=== PATIENT | female | born 1960 | race American Indian/Alaskan Native ===

== ENCOUNTER 2017-04-27 08:50 | Emergency (ER) | payer OTHER ==
[2017-04-27 10:32] LABS: Creatine Kinase MB 4.2 ng/mL (0.0-4.0)
[2017-04-27 10:33] LABS: Anion Gap 23 mmol/L; BUN/Creatinine Ratio 23; Blood Urea Nitrogen 14 mg/dL (7-17); Calcium 10.2 mg/dL (8.4-10.2); Carbon Dioxide 21 mmol/L (22-30); Chloride 99.5 mmol/L (98-107); Creatine Kinase 201 units/L (30-135); Glucose 305 mg/dL (65-100); Potassium 4.4 mmol/L (3.6-5.0); Sodium 139 mmol/L (137-145)
[2017-04-27 10:38] LABS: Eosinophils % (Auto) 0.9 % (0.0-4.3); Hematocrit 41.7 % (30.3-42.9); Hemoglobin 13.5 gm/dl (10.1-14.3); Mean Corpuscular HGB Conc 32 % (30-34); Mean Corpuscular Volume 76 fl (79-97); Platelet Count 172 K/mm3 (140-440); Red Blood Count 5.47 M/mm3 (3.65-5.03); Red Cell Distribution Width 14.4 % (13.2-15.2); White Blood Count 7.2 K/mm3 (4.5-11.0)
[2017-04-27 10:39] LABS: Mean Corpuscular Hemoglobin 25 pg (28-32)
[2017-04-27 10:40] LABS: Mucus,Urine FEW /HPF; RBC,Urine < 1.0 /HPF (0.0-6.0); WBC,Urine < 1.0 /HPF (0.0-6.0)
[2017-04-27 10:54] VITALS: BP 163/89
[2017-04-27 11:06] LABS: Bilirubin,Urine Negative (Negative); Blood,Urine Small (Negative); Ketones,Urine Trace mg/dL (Negative)
[2017-04-27 11:07] LABS: Leukocyte Esterase,Urine Negative (Negative); Nitrite,Urine Negative (Negative); Urobilinogen,Urine < 2.0 mg/dL (<2.0)
[2017-04-27] MEDS ORDERED: DILAUDID IV ONE (11:41)
[2017-04-27] MEDS ORDERED: ZOFRAN IV ONE (11:41)
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
== END 2017-04-27 14:39 | disposition home or self-care (01) ==
LOC: ED 08:50
DX: S13.4XXA Sprain of ligaments of cervical spine, initial encounter (principal); I10 Essential (primary) hypertension; E11.9 Type 2 diabetes mellitus without complications; K21.9 Gastro-esophageal reflux disease without esophagitis; F17.200 Nicotine dependence, unspecified, uncomplicated; F10.10 Alcohol abuse, uncomplicated; V89.2XXA Person injured in unspecified motor-vehicle accident, traffic, initial encounter; Y93.89 Activity, other specified; Y92.89 Other specified places as the place of occurrence of the external cause; Y99.8 Other external cause status
CPT/HCPCS: 36415; 70498; 72125; 80048; 81001; 82550; 82553; 82962; 84484; 85025; 93005; 93010; 96374; 96375; 99284; J1170; J2405; Q9967; J1815

== ENCOUNTER 2017-07-17 10:33 | Emergency (ER) | payer OTHER ==
[2017-07-17 11:29] VITALS: BP 170/87
--- NOTE | 2017-07-17 13:17 | Emergency Department Report ---
Blank Doc - Documentation Documentation: Patient is a 57-year-old Spanish female who presented with cough cold congestion for 5 days. Patient is a heavy smoker and is worried about pneumonia. Patient states she is just continuously coughing denies any fever nausea vomiting at this time Chest x-ray has been ordered patient had a mild bronchitic cough with mild wheeze and a DuoNeb been ordered as well.
[2017-07-17] MEDS ORDERED: TESSALON PERLES PO ONE (13:18)
[2017-07-17] MEDS ORDERED: DUONEB *Not for PRN Use IH ONE (13:18)
--- NOTE | 2017-07-17 14:20 | XRay Report ---
ROUTINE CHEST, TWO VIEWS: HISTORY: cough. The trachea, heart, mediastinal contour, lung mcrae and bony thorax are unremarkable. IMPRESSION: Unremarkable chest x-ray.
--- NOTE | 2017-07-17 15:16 | Emergency Department Report ---
- General Chief Complaint: Upper Respiratory Infection Stated Complaint: FLU LIKE SYMPTOMS Time Seen by Provider: 07/17/17 12:46 Source: patient Mode of arrival: Ambulatory Limitations: No Limitations - History of Present Illness Initial Comments: 57-year-old female comes over complaining of cough since this persistent she sore around her rib cage has nasal congestion and loss of voice. Patient reports that she had nausea and vomiting times one on of last week. And [place] plus and [place] cold and cough without much relief. Patient does not have a primary care. She denies any fever or chills. Review of patient's chart noted the patient was placed on metformin for blood sugar that she was last seen at 305 back in 04/27/2017. She was also placed on hypertensive medications that she reports she does not take any medications at this time. MD Complaint: cough, rhinorrhea, nasal congestion - Related Data Home Medications Medication Instructions Recorded Confirmed Last Taken Amoxicillin/Potassium Clav 1 each PO BID 04/27/17 04/27/17 04/26/17 [Augmentin 875-125 Tablet] Previous Rx's Medication Instructions Recorded Last Taken Type Cyclobenzaprine HCl [Flexeril 5 MG 5 mg PO TID #14 tab 04/27/17 Unknown Rx TAB] HYDROcodone/ACETAMINOPHEN [[place] 1 each PO Q6H PRN #14 tablet 04/27/17 Unknown Rx 5-325 Tablet] Lisinopril/Hydrochlorothiazide 1 tab PO QDAY #30 tablet 04/27/17 Unknown Rx [Zestoretic 10-12.5 mg] metFORMIN [Glucophage] 500 mg PO BID #60 tablet 04/27/17 Unknown Rx Promethazine /Codeine 5 ml PO Q6H PRN #100 ml 07/17/17 Unknown Rx [Phenergan/Codeine 6.25-10 mg/5 ml] Allergies Allergy/AdvReac Type Severity Reaction Status Date / Time No Known Allergies Allergy Unverified 08/16/13 09:22 ED Review of Systems ROS: Stated complaint: FLU LIKE SYMPTOMS Other details as noted in HPI Constitutional: denies: chills, fever Eyes: denies: eye pain, eye discharge, vision change ENT: denies: ear pain, throat pain Respiratory: cough Cardiovascular: denies: chest pain, palpitations Endocrine: no symptoms reported Gastrointestinal: denies: abdominal pain, nausea, diarrhea Genitourinary: denies: urgency, dysuria, discharge Musculoskeletal: denies: back pain, joint swelling, arthralgia Skin: denies: rash, lesions Neurological: denies: headache, weakness, paresthesias Psychiatric: denies: anxiety, depression Hematological/Lymphatic: denies: easy bleeding, easy bruising ED Past Medical Hx - Past Medical History Hx GERD: Yes Additional medical history: Denies history of diabetes or hypertension. Patient is a very poor utilizer of healthcare services. - Surgical History Additional Surgical History: Hernia removed - Social History Smoking Status: Former Smoker Substance Use Type: None - Medications Home Medications: Home Medications Medication Instructions Recorded Confirmed Last Taken Type Amoxicillin/Potassium Clav 1 each PO BID 04/27/17 04/27/17 04/26/17 History [Augmentin 875-125 Tablet] Cyclobenzaprine HCl [Flexeril 5 MG 5 mg PO TID #14 tab 04/27/17 Unknown Rx TAB] HYDROcodone/ACETAMINOPHEN [[place] 1 each PO Q6H PRN #14 tablet 04/27/17 Unknown Rx 5-325 Tablet] Lisinopril/Hydrochlorothiazide 1 tab PO QDAY #30 tablet 04/27/17 Unknown Rx [Zestoretic 10-12.5 mg] metFORMIN [Glucophage] 500 mg PO BID #60 tablet 04/27/17 Unknown Rx Promethazine /Codeine 5 ml PO Q6H PRN #100 ml 07/17/17 Unknown Rx [Phenergan/Codeine 6.25-10 mg/5 ml] ED Physical Exam - General Limitations: No Limitations General appearance: alert, in no apparent distress, other (nontoxic) - Head Head exam: Present: atraumatic, normocephalic - Eye Eye exam: Present: normal appearance - ENT ENT exam: Present: mucous membranes moist, TM's normal bilaterally - Neck Neck exam: Present: normal inspection - Respiratory Respiratory exam: Present: normal lung sounds bilaterally, other (actively coughing during exam) - Cardiovascular Cardiovascular Exam: Present: regular rate, normal rhythm. Absent: systolic murmur, diastolic murmur, rubs, gallop - GI/Abdominal GI/Abdominal exam: Present: soft, normal bowel sounds - Extremities Exam Extremities exam: Present: normal inspection, full ROM - Neurological Exam Neurological exam: Present: alert, oriented X3 - Psychiatric Psychiatric exam: Present: normal affect, normal mood ED Course Vital Signs 07/17/17 07/17/17 07/17/17 11:25 13:27 13:46 Temperature 97.8 F Pulse Rate 99 H Pulse Rate [ 90 88 Bilateral] Respiratory 18 Rate Respiratory 16 16 Rate [Bilateral ] Blood Pressure 170/87 O2 Sat by Pulse 97 Oximetry ED Medical Decision Making - Radiology Data Radiology results: report reviewed, image reviewed Unremarkable chest x-ray - Medical Decision Making Is evaluated by this provider as well as Dr. Sharma chest x-ray was ordered patient chest x-ray was unremarkable. Discussed the patient I'll give her cough medication for suppressant and something for her nasal congestion. Discussed the patient that it is imperative for her to follow up with her primary care provider since she is not taking any of her medications which when she was last here a 04/27/2017 she was prescribed lisinopril/ hydrochlorothiazide 03/22 0.5 as well as metformin 500 mg twice a day. Patient is not taking any of those medications. Patient verbalized understanding. Critical care attestation.: If time is entered above; I have spent that time in minutes in the direct care of this critically ill patient, excluding procedure time. ED Disposition Clinical Impression: Cold Disposition: DC-01 TO HOME OR SELFCARE Is pt being admited?: No Does the pt Need Aspirin: No Condition: Stable Instructions: Analgesic/Antihistamine/Decongestant (By mouth) Additional Instructions: Please do not operate heavy machinery car or take alcohol while taking this cough medication. Please follow-up with the doctor regards to your diabetes, hypertension, and preventative care. Prescriptions: Promethazine /Codeine [Phenergan/Codeine 6.25-10 mg/5 ml] 5 ml PO Q6H PRN #100 ml PRN Reason: cough Referrals: PRIMARY CARE, [Primary Care Provider] - 3-5 Days Forms: Work/School Release Form(ED)
== END 2017-07-17 15:40 | disposition home or self-care (01) ==
LOC: ED 10:33
DX: J00 Acute nasopharyngitis [common cold] (principal); K21.9 Gastro-esophageal reflux disease without esophagitis; Z87.891 Personal history of nicotine dependence
CPT/HCPCS: 71046; 94640

== ENCOUNTER 2019-07-28 16:14 | Emergency (ER) | payer OTHER ==
--- NOTE | 2019-07-28 16:47 | Event Note ---
ED Screening Note ED Screening Note: 59 yo female with hx of alcohol abuse and DM presents wtih ankkle, knee pain, chest pain, headache. extremely tearful and upset, drinks 6 beers daily This initial assessment/diagnostic orders/clinical plan/treatment(s) is/are subject to change based on patients health status, clinical progression and re-assessment by fellow clinical providers in the ED. Further treatment and workup at subsequent clinical providers discretion. Patient/guardian urged not to elope from the ED as their condition may be serious if not clinically assessed and managed. Initial orders include: labs ekg cxr
[2019-07-28 17:48] LABS: Hyaline Casts,Urine 1 /LPF; Mucus,Urine FEW /HPF
[2019-07-28 18:17] LABS: Bilirubin,Urine Negative (Negative); Color,Urine Straw (Yellow)
[2019-07-28 18:18] LABS: Blood,Urine Negative (Negative); Urobilinogen,Urine < 2.0 mg/dL (<2.0)
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
[2019-07-28 19:46] LABS: Basophils # (Auto) 0.1 K/mm3 (0.0-0.1); Basophils % (Auto) 1.8 % (0.0-1.8); Eosinophils % (Auto) 0.6 % (0.0-4.3); Hematocrit 33.4 % (30.3-42.9); Hemoglobin 10.8 gm/dl (10.1-14.3); Lymphocytes % (Auto) 25.7 % (13.4-35.0); Mean Corpuscular HGB Conc 32 % (30-34); Mean Corpuscular Volume 83 fl (79-97); Monocytes # (Auto) 0.5 K/mm3 (0.0-0.8); Monocytes % (Auto) 12.2 % (0.0-7.3); Platelet Count 145 K/mm3 (140-440); Red Blood Count 4.03 M/mm3 (3.65-5.03); Red Cell Distribution Width 17.3 % (13.2-15.2)
[2019-07-28 20:01] LABS: BUN/Creatinine Ratio 18; Blood Urea Nitrogen 9 mg/dL (7-17); Calcium 9.9 mg/dL (8.4-10.2); Hemolysis Index 1
[2019-07-28 20:03] LABS: Alanine Aminotransferase 45 units/L (7-56); Albumin 4.2 g/dL (3.9-5)
[2019-07-28 20:06] LABS: Bilirubin,Direct < 0.2 mg/dL (0-0.2)
[2019-07-29 00:50] VITALS: BP 208/110
--- NOTE | 2019-07-29 01:04 | Emergency Department Report ---
ED General Adult HPI - General Chief complaint: Weakness Stated complaint: RT SIDE SWELLING/FEET/HEADACHE Time Seen by Provider: 07/29/19 00:22 Source: patient Mode of arrival: Ambulatory Limitations: No Limitations - History of Present Illness Initial comments: 59-year-old -[place] female with past medical history of acid reflux disease and alcohol dependence presents emergency department complaining of lower extremity swelling bilaterally of unknown etiology which is been present off and on for the for the past few days. She reports having untreated hypertension and denies any chest pain, fever, chills, sweats, headaches, blurred vision nausea or vomiting, suicidal, homicidal ideation. States that she consumes about a pint of liquor daily in the form of tequila 1800. She wants to quit drinking also states that she knows she needs to do this for health and to stay around for her family but at this point is worried about the lower extremity swelling. -: Gradual Location: lower extremity Radiation: non-radiation Severity scale (0 -10): 8 Consistency: constant Improves with: none Worsens with: none Associated Symptoms: denies: chest pain, cough, diaphoresis, headaches, loss of appetite, malaise, rash, shortness of breath, syncope Treatments Prior to Arrival: none - Related Data Home Medications Medication Instructions Recorded Confirmed Last Taken Amoxicillin/Potassium Clav 1 each PO BID 04/27/17 04/27/17 04/26/17 [Augmentin 875-125 Tablet] Previous Rx's Medication Instructions Recorded Last Taken Type Cyclobenzaprine HCl [Flexeril 5 MG 5 mg PO TID #14 tab 04/27/17 Unknown Rx TAB] HYDROcodone/ACETAMINOPHEN [[place] 1 each PO Q6H PRN #14 tablet 04/27/17 Unknown Rx 5-325 Tablet] Lisinopril/Hydrochlorothiazide 1 tab PO QDAY #30 tablet 04/27/17 Unknown Rx [Zestoretic 10-12.5 mg] metFORMIN [Glucophage] 500 mg PO BID #60 tablet 04/27/17 Unknown Rx Promethazine /Codeine 5 ml PO Q6H PRN #100 ml 07/17/17 Unknown Rx [Phenergan/Codeine 6.25-10 mg/5 ml] Furosemide [Lasix] 20 mg PO QDAY #7 tablet 07/29/19 Unknown Rx Potassium Chloride 10 meq PO DAILY #7 tablet.er 07/29/19 Unknown Rx Allergies Allergy/AdvReac Type Severity Reaction Status Date / Time No Known Allergies Allergy Unverified 08/16/13 09:22 ED Review of Systems ROS: Stated complaint: RT SIDE SWELLING/FEET/HEADACHE Other details as noted in HPI Comment: All other systems reviewed and negative ED Past Medical Hx - Past Medical History Previous Medical History?: Yes Hx GERD: Yes Additional medical history: Denies history of diabetes or hypertension. Patient is a very poor utilizer of healthcare services. - Surgical History Past Surgical History?: Yes Additional Surgical History: Hernia removed - Social History Smoking Status: Unknown if ever smoked Substance Use Type: Alcohol - Medications Home Medications: Home Medications Medication Instructions Recorded Confirmed Last Taken Type Amoxicillin/Potassium Clav 1 each PO BID 04/27/17 04/27/17 04/26/17 History [Augmentin 875-125 Tablet] Cyclobenzaprine HCl [Flexeril 5 MG 5 mg PO TID #14 tab 04/27/17 Unknown Rx TAB] HYDROcodone/ACETAMINOPHEN [[place] 1 each PO Q6H PRN #14 tablet 04/27/17 Unknown Rx 5-325 Tablet] Lisinopril/Hydrochlorothiazide 1 tab PO QDAY #30 tablet 04/27/17 Unknown Rx [Zestoretic 10-12.5 mg] metFORMIN [Glucophage] 500 mg PO BID #60 tablet 04/27/17 Unknown Rx Promethazine /Codeine 5 ml PO Q6H PRN #100 ml 07/17/17 Unknown Rx [Phenergan/Codeine 6.25-10 mg/5 ml] Furosemide [Lasix] 20 mg PO QDAY #7 tablet 07/29/19 Unknown Rx Potassium Chloride 10 meq PO DAILY #7 tablet.er 07/29/19 Unknown Rx ED Physical Exam - General Limitations: No Limitations General appearance: alert, in no apparent distress - Head Head exam: Present: atraumatic, normocephalic - Eye Eye exam: Present: normal appearance, PERRL, EOMI Pupils: Present: normal accommodation - ENT ENT exam: Present: normal exam, normal orophraynx, mucous membranes moist, TM's normal bilaterally - Neck Neck exam: Present: normal inspection, full ROM - Respiratory Respiratory exam: Present: normal lung sounds bilaterally. Absent: respiratory distress, wheezes, rales, rhonchi, chest wall tenderness, accessory muscle use, decreased breath sounds - Cardiovascular Cardiovascular Exam: Present: regular rate, normal rhythm. Absent: systolic murmur, diastolic murmur, rubs, gallop - GI/Abdominal GI/Abdominal exam: Present: soft, normal bowel sounds - Extremities Exam Extremities exam: Present: normal inspection - Back Exam Back exam: Present: normal inspection - Neurological Exam Neurological exam: Present: alert, oriented X3 - Psychiatric Psychiatric exam: Present: normal affect, normal mood - Skin Skin exam: Present: warm, dry, intact, normal color. Absent: rash ED Course Vital Signs 07/28/19 07/28/19 07/28/19 16:47 22:51 23:07 Temperature 99.1 F 98.9 F Pulse Rate 102 H 98 H Respiratory 18 18 Rate Blood Pressure 188/79 213/105 Blood Pressure 210/112 [Left] O2 Sat by Pulse 96 99 Oximetry 07/28/19 07/28/19 07/29/19 23:48 23:52 00:00 Temperature Pulse Rate 93 H 90 88 Respiratory 20 16 19 Rate Blood Pressure 190/93 209/95 Blood Pressure [Left] O2 Sat by Pulse 99 97 95 Oximetry 07/29/19 00:30 Temperature Pulse Rate 93 H Respiratory 20 Rate Blood Pressure 208/110 Blood Pressure [Left] O2 Sat by Pulse 98 Oximetry ED Medical Decision Making - Lab Data Result diagrams: 07/28/19 19:02 07/28/19 19:02 Critical care attestation.: If time is entered above; I have spent that time in minutes in the direct care of this critically ill patient, excluding procedure time. ED Disposition Clinical Impression: Lower extremity edema, ETOH abuse Disposition: DC-01 TO HOME OR SELFCARE Is pt being admited?: No Does the pt Need Aspirin: No Condition: Stable Instructions: Leg Edema (ED), Abuse of Alcohol (ED) Prescriptions: Furosemide [Lasix] 20 mg PO QDAY #7 tablet Potassium Chloride 10 meq PO DAILY #7 tablet.er Referrals: DON RO MD [Staff Physician] - 3-5 Days
== END 2019-07-29 02:40 | disposition home or self-care (01) ==
LOC: ED 16:14
DX: R60.9 Edema, unspecified (principal); K21.9 Gastro-esophageal reflux disease without esophagitis
CPT/HCPCS: 36415; 71046; 80048; 80076; 80320; 81001; 82962; 83880; 84484; 85025; 93005; 93010; 99284; G0480